=== PATIENT | male | born 1985 | race Caucasian/White ===

== ENCOUNTER 2025-03-08 08:43 | Emergency (ER) | payer BC, SELFPAY ==
[2025-03-08 08:52] VITALS: BP 146/83; PULSE 81; RESP 16; TEMP 36.9; O2SAT 99
--- OUTSIDE RECORDS SUMMARY | 2025-03-08 08:53 | XMS_ITS | Clinical Summary ---
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): Sleep study ordered for excessive daytime sleepiness and snoring Immunizations Immunization Administration Dates Next Due Influenza, Quadrivalent, Spl it, Preservative Free, Intramuscular 07/20/2023 Influenza, Unspecified 04/21/2023(Deferr ed: Patient Refused),03/20/2022 Pfizer SARS-CoV-2 Monovalent Vaccination (12+ Yrs) PURPLE 11/26/2020,11/05/2020 Pneumococcal Conjugate Pcv20 07/20/2023 Td, adsorbed 02/09/2022 Tdap 02/09/2022 Family History Medical History Relation Name Comments Hypertension Father Thyroid disease Mother Diabetes Paternal Grandfather Relation Name Status Comments Father Alive Mother Alive Paternal Grandfather Social History Tobacco Use Types Packs/Day Years Used Date Smoking Tobacco: Former Cigarettes Smokeless Tobacco: Never Tobacco Cessation:Counseling Given: Not Answered Alcohol Use Standard Drinks/Week Comments Yes 1 (1 standard drink = 0.6 oz pur e alcohol) AUDIT-C Answer Date Recorded Q1: How often do you have a drink containing alc ohol? Monthly or less 07/20/2023 Q2: How many drinks containi ng alcohol do you have on a typical day when you are drinking? 1 or 2 07/20/2023 Q3: How often do you have si x or more drinks on one occasion? Never 07/20/2023 PHQ-2 Answer Date Recorded PHQ-2 Total Score (If total score is 3 or more points, staff should administer the PHQ-9) 0 07/20/2023 Personal Safety Answer Date Recorded Getting School Help Needed Not on file 11/18 Sex and Gender Information Value Date Recorded Sex Assigned at Not on file Legal Sex Male 4:13 AM CDT Gender Identity Not on file Sexual Orientation Not on file Obstetrics History Last Filed Vital Signs Vital Sign Reading Time Taken Comments Blood Pressure 130/82 07/20/2023 8:19 AM MILK TANKER DRIVER Pulse 67 07/20/2023 8:19 AM MILK TANKER DRIVER Temperature 36.4 C (97.5 F) 07/20/2023 8:19 AM MILK TANKER DRIVER Respiratory Rate 16 07/20/2023 8:19 AM MILK TANKER DRIVER Oxygen Saturation 99% 07/20/2023 8:19 AM MILK TANKER DRIVER Inhaled Oxygen Concentration - - Weight 115.4 kg (254 lb 6.4 oz) 07/20/2023 8:19 AM MILK TANKER DRIVER Height 180.3 cm (5' 11) 07/20/2023 8: 19 AM MILK TANKER DRIVER Body Mass Index 35.48 07/20/2023 8:19 AM MILK TANKER DRIVER Plan of Treatment Health Maintenance Due Date Last Done Comments Hepatitis C Screening 1985 Hepatitis B Screening 2003 HPV Vaccines (1 - 3-dose SCDM series) 01/22/2012 Depression Screening 07/20/2024 07/20/2023 Regular Well Visit/Exam 18-64 07/20/2024 07/20/2023 Influenza Vaccine (#1) 2025 , 03/20/2022 DTaP/Tdap/Td Vaccine (2 - Td or Tdap) 02/10/2032 02/09/2022, 02/09/2022 Covid-19 Vaccine Discontinued 11/26/2020, 11/05/2020 Pneumococcal vaccine <65 Aged Out 07/20/2023 No longer eligible based on patient's age to complete this topic Varicella Vaccines Discontinued Insurance BLUE [employer] OOS [employer] OOS [employer] ACCESS CHOICE Care Teams Coupon And Bond Collection Clerk Relationship Specialty Start Date End Date Maya Mathias NP PCP - General Family Medicine 07/20/23
--- OUTSIDE RECORDS SUMMARY | 2025-03-08 08:53 | XMS_ITS | Clinical Summary ---
Author Organization [facility] Address [address] [place] [phone] Phone Care Team Providers Care Patent Solicitor Name Role Phone Provider, None Primary Care Provider Unavailabl e Medications No known medications Active Problems No known active problems Immunizations Immunization Administration Dates Next Due TD VACCINE 02/09/2022 Social History Tobacco Use Types Packs/Day Years Used Date Smoking Tobacco: Never Smokeless Tobacco: Never Alcohol Use Standard Drinks/Week Comments Not Currently 0 (1 standard drink = 0.6 oz pur e alcohol) Sex and Gender Information Value Date Recorded Sex Assigned at Not on file 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 Gender Identity Not on file Sexual Orientation Not on file Last Filed Vital Signs Vital Sign Reading Time Taken Comments Blood Pressure 146/88 02/09/2022 10:53 AM CDT Pulse 77 02/09/2022 10:53 AM CDT Temperature 36.7 C (98.1 F) 02/09/2022 10:53 AM CDT Respiratory Rate 18 02/09/2022 10:53 AM CDT Oxygen Saturation 98% 02/09/2022 10:53 AM CDT Inhaled Oxygen Concentration - - Weight - - Height - - Body Mass Index - - Plan of Treatment Health Maintenance Due Date Last Done Comments Hepatitis C Virus (HCV) Screening 1985 TdaP Immunization 1985 Hepatitis B Immunization (1 of 3 - 19+ 3-dose series) 01/22/2004 Human Papillomavirus (HPV) Immunization (1 - 3-dose SCDM series) 01/22/2012 SARS-COV-2 Immunization ( - season) 2024 11/26/2020, 11/05/2020 Influenza Immunization (#1) 2025 Respiratory Syncytial Virus (RSV) Immunization (Adult) (1 - 1-dose 75+ series) 01/22/2060 DTaP/Tdap/Td Immunization Discontinued 02/09/2022 Meningococcal Immunization (ACWY) Aged Out No longer eligible based on patient's age to complete this topic Pneumococcal Immunization Combined Aged Out No longer eligible based on patient's age to complete this topic Rotavirus Immunization Aged Out No lo nger eligible based on patient's age to complete this topic Insurance [facility] Care Teams Patent Solicitor Relationship Specialty Start Date End Date Provider, None [place] PCP - General 02/09/22
--- NOTE | 2025-03-08 08:57 | ED_ITS ---
HPI - URI/Sore Throat General Chief Complaint: Upper Respiratory Infection Stated Complaint: feeling sick, fever, sore muscles, headache Time Seen by Provider: 03/08/25 08:56 Source: patient and RN notes reviewed Mode of arrival: ambulatory Limitations: no limitations History of Present Illness HPI Narrative: 40-year-old male presents concern for fever. Reports he got sick about 8 days ago symptoms started to get better and then got worse 2 days ago with fever. Reports ear pain bilaterally. Reports headache and body aches. He denies cough or shortness of breath. He has been taking Tylenol ibuprofen elicited complaint: fever Related Data Allergies Allergy/AdvReac Type Severity Reaction Status Date / Time No Known Allergies Allergy Verified 03/08/25 08:57 Review of Systems Review of Systems: CONSTITUTIONAL: Denies malaise, chills, sweats. Reports fever. EYES: Denies visual changes, redness, or discharge. ENT: Denies rhinorrhea, congestion, sinus pain, and sore throat. Reports bilateral ear pain CARDIOVASCULAR: Denies chest pain, palpitations, or edema. RESPIRATORY: Denies cough. Denies dyspnea. GASTROINTESTINAL: Denies abdominal pain, nausea, vomiting, diarrhea SKIN: Denies rash or itching. MUSCULOSKELETAL: Reports myalgia. NEUROLOGIC: Reports headache. All systems reviewed & are unremarkable except as noted in HPI and below PMFSH Comments At time of signature, agree with nursing past medical, surgical, social and family history. There is no relevant family history pertinent to the presenting complaint Exam Narrative: GENERAL: Well-appearing, well-nourished, and in no acute distress. HEAD: Normocephalic EYES: PERRLA, conjunctivae clear ENT: Nares clear. Mucous membranes moist. TM erythematous bilaterally; no tragal tenderness. Oropharynx not erythematous without lesions. Tonsils not enlarged and without exudate, no drooling, no hoarseness, no trismus, uvula midline. NECK: Supple. No lymphadenopathy CHEST: Clear to auscultation, breath sounds equal. No wheezing, rhonchi, rales, or stridor. No respiratory distress, speaks in full sentences. HEART: Regular rate and rhythm. No murmur heard. SKIN: Warm, dry, no rash. NEURO: Alert and oriented x3. PSYCH: Normal mood and affect Course Course Emergency Course: Patient is aware of diagnosis, understands and agrees to treatment plan. Anticipatory guidance given. Patient agrees to follow-up as directed and is aware of reasons to seek care at the emergency department. Portions of this record may have been created with voice recognition software Level of Care: Express Care Visit Vital Signs Vital signs: Vital Signs Temperature 98.4 F 03/08/25 08:52 Pulse Rate 81 03/08/25 08:52 Respiratory Rate 16 03/08/25 08:52 Blood Pressure 146/83 H 03/08/25 08:52 Pulse Oximetry 99 03/08/25 08:52 Oxygen Delivery Room Air 03/08/25 08:52 Temperature 98.4 F 03/08/25 08:52 Pulse Rate 81 03/08/25 08:52 Respiratory Rate 16 03/08/25 08:52 Blood Pressure 146/83 H 03/08/25 08:52 Pulse Oximetry 99 03/08/25 08:52 Oxygen Delivery Room Air 03/08/25 08:52 Reviewed. MDM - URI/Sore Throat MDM Narrative Medical decision making narrative: Differential diagnosis considered: Balderas virus, strep pharyngitis, allergic rhinitis, upper respiratory tract infection, sinusitis, rhinosinusitis, nasopharyngitis. viral pharyngitis, otitis media, otitis externa, pneumonia, bronchitis, viral cough syndrome, viral syndrome, and influenza. Exam findings show no acute concerns or changes; patient is non-toxic appearing and is in no distress. Patient is appropriate for outpatient treatment and follow-up. Lab Data Attestation: I reviewed the patient's lab results. Critical Care Time Critical Care Time Critical Care Time: No Discharge Plan Discharge Clinical Impression: Otitis media Patient Disposition: Home Condition: Stable Instructions: Antibiotic Form, Ear Infection (ED) Additional Instructions: Take antibiotics as directed. Recommend antihistamine such as Benadryl at night time and Zyrtec or Kym during the day until symptoms improve Flonase nasal spray, 1 spray in each nostril once daily until symptoms improve Also, recommend symptomatic treatment includes: rest, fluids, and increase humidity of the air at home. Recommend Acetaminophen as directed on the bottle to reduce fever, pain Please schedule a follow-up visit with your personal physician for further evaluation and treatment within 3-5days. If your symptoms persist, change or worsen significantly before you can contact your personal physician then please, without delay, go to the emergency department for further evaluation. Patient Language: Albanian Prescriptions: New pseudoephedrine HCl [12 Hour Decongestant] 120 mg tablet extended release 120 mg PO Q12H PRN (Reason: nasal congestion) Qty: 20 0RF amoxicillin 875 mg tablet 875 mg PO Q12H 10 Days Qty: 20 0RF Follow-up/Referrals: UNKNOWN,DOCTOR [Primary Care Provider] Time of Disposition: 09:05
== END 2025-03-08 09:08 | disposition home or self-care (01) ==
PROVIDERS: Emergency Provider Nurse Practitioner
DX: H66.93 Otitis media, unspecified, bilateral (principal)
CPT/HCPCS: 99203; G0463